=== PATIENT | female | born 1950 | race Caucasian/White ===

== ENCOUNTER → 2018-05-03 15:18 | Outpatient (CLI) | payer MEDICARE, SELFPAY ==
[2018-05-03 16:48] LABS: Hemoglobin 13.3 g/dl (12.0-15.0); Mean Corp Hgb Conc 32.4 g/gl (32-36); Mean Corpuscular Hgb 30.3 pg (27.0-32.0); Mean Corpuscular Volume 93.4 fL (81-99); Mean Platelet Vol. 10.3 fl (6.2-12.0); Platelet Count 260 K/mm3 (150-450); RBC Distribution Width CV 12.5 % (11.6-14.6); RBC Distribution Width SD 42.1 fl (35.1-43.9); Red Blood Count 4.39 M/mm3 (4.2-5.4); White Blood Count 6.1 K/mm3 (4.4-11.0)
[2018-05-03 17:00] LABS: Scan Indicated on CBC? Y/N NO
[2018-05-03 17:18] LABS: ALB/GLOB Ratio 1.3 RATIO (0.9-2.4); AST(SGOT) 13 U/L (15-37); Alanine Aminotransfer ALT/SGPT 21 U/L (13-56); Albumin, Serum 3.8 g/dL (3.2-5.0); Alkaline Phosphatase 66 U/L (45-117); Anion Gap 9 (5-15); BUN 15 mg/dL (7-18); BUN/Creat Ratio 23.9 RATIO (10-20); Calcium,Total 8.7 mg/dL (8.5-10.1); Chloride 107 mmol/L (98-107); Cholesterol 197 mg/dL (200); Creatinine, Serum 0.63 mg/dL (0.55-1.02); EST Glomerular Filtration Rate 100 mL/min (>60); Est Glom Filt Rate - Afr Amer 121 mL/min (>60); Globulin 2.9 g/dL (2.2-4.2); Glucose 83 mg/dL (74-106); High Density Lipoprotein 93 mg/dL; Potassium 3.8 mmol/L (3.5-5.1); Protein, Total 6.7 g/dL (6.4-8.2); Sodium Level 143 mmol/L (136-145); Triglycerides 47 mg/dL; Very Low Density Lipoprotein 9 mg/dL (5-40)
[2018-05-03 17:26] LABS: Vitamin D,25 Hydroxy 35.7 ng/mL (29.95-100.01)
== END ==
PROVIDERS: Family Provider Family Medicine; PCP Family Medicine; Referring Provider Family Medicine; Visit Provider Family Medicine
DX: Z00.00 Encounter for general adult medical examination without abnormal findings (principal); Z12.11 Encounter for screening for malignant neoplasm of colon; I10 Essential (primary) hypertension; E55.9 Vitamin D deficiency, unspecified; R53.81 Other malaise; R53.83 Other fatigue
CPT/HCPCS: 36415; 80053; 80061; 82306; 85027

== ENCOUNTER → 2018-05-12 13:33 | Outpatient (CLI) | payer MEDICARE, SELFPAY ==
[2014-12-06 11:11] VITALS: BMI 22.4
--- OUTSIDE RECORDS SUMMARY | 2018-08-16 04:00 | XMS RPT_ITS ---
:1950 Author Organization OHIP Care Team Providers Name Role Phone RANI WIGGINS Admitting Unavailable RANI WIGGINS Attending Unavailable RANI WIGGINS Primary Care Unavailable BAIRON PAINTING (BUSINESS OPERATIONS SPECIALIST) Attending Unavailable ELDERBROCK, JAMIE Cristobal Attending Unavailable ELDERBROCK, JAMIE Cristobal Referring Unavailable Elderbrock, Jamie Attending Unavailable Elderbrock, Jamie Referring Unavailable Elderbrock, Jamie Primary Care Unavailable Elderbrock, Jamie Attending Unavailable Elderbrock, Jamie Referring Unavailable Elderbrock, Jamie Primary Care Unavailable PROBLEMS PROBLEMS DATE TYPE CONDITION / CODE ATTENDING STATUS SOURCE 05/12/2018 Unknown R19.7 - Diarrhea, Elder[place]ck, Active [place] unspecified / [facility] R19.7(ICD-10) Hospital Repository 05/03/2018 Unknown Z00.00 - Encounter [place], Active [place] for general adult [facility] examination Repository without abnormal findings / Z00.00(ICD-10) 05/03/2018 Unknown I10 - Essential Elder[place]ck, Active [place] (primary) [facility] hypertension / Hospital I10(ICD-10) Repository 05/03/2018 Unknown Z12.11 - Encounter Elder[place]ck, Active [place] for screening for [facility] malignant neoplasm Hospital of colon / Repository Z12.11(ICD-10) 05/03/2018 Unknown E55.9 - Vitamin D Elderbrock, Active [place] deficiency, [facility] unspecified / Hospital E55.9(ICD-10) Repository 05/03/2018 Unknown R53.81 - Other Elderbrock, Active [place] malaise / [facility] R53.81(ICD-10) Hospital Repository 05/03/2018 Unknown R53.83 - Other Elderbrock, Active [place] fatigue / [facility] R53.83(ICD-10) Hospital Repository PROCEDURES PROCEDURES No Procedure Records FoundRESULTS RESULTS Observed: 05/12/2018 Status: F Source: [place] STOOL OCCULT BLOOD 1:47 PM [facility] IFOB REPOSITORY STOB iFOB Occult Blood Negative Performed By: #### M100.7900 #### [facility] [address] [place], [place], [id number] CBC-COMPLETE BLOOD CNT Collected: 05/03/2018 Status: F Source: [place] NO DIFF 3:46 PM [facility] REPOSITORY TYPE CODE TESTS RESULT OUT OF RANGE REFERENCE UNITS LAB L100.1000 4.4-11.0 K/mm3 Normal WBC 6.1 LAB L100.1200 4.2-5.4 M/mm3 Normal RBC 4.39 LAB L100.1300 12.0-15.0 g/dl Normal HGB 13.3 LAB L100.1400 37-47 % Normal HCT 41.0 LAB L100.1500 81-99 fL Normal MCV 93.4 LAB L100.1600 27.0-32.0 pg Normal MCH 30.3 LAB L100.1700 32-36 g/gl Normal MCHC 32.4 LAB L100.1810 11.6-14.6 % Normal RDW CV 12.5 LAB L100.1820 35.1-43.9 fl Normal RDW SD 42.1 LAB L100.1900 150-450 K/mm3 Normal PLT 260 LAB L100.2000 6.2-12.0 fl Normal MPV 10.3 Performed By: #### L100.0500 #### [facility] [address] [place], [place], [address] COMPREHENSIVE METABOLIC Collected: 05/03/2018 Status: F Source: [place] PROFIL 3:46 PM [facility] REPOSITORY TYPE CODE TESTS RESULT OUT OF RANGE REFERENCE UNITS LAB L501.0100 74-106 mg/dL Normal GLU 83 Result Comment: Please note revised GLUCOSE reference range effective 2017. LAB L501.1000 7-18 mg/dL Normal BUN 15 LAB L501.1100 0.55-1.02 mg/dL Normal CREAT,SERUM 0.63 Result Comment: The validity of the calculated GFR AND GFRAA in patients over 70 years has not been determined. Clinical correlation is essential. LAB L501.1110 >60 mL/min Normal EST GFR 100 Result Comment: Non- GFR Calc LAB L501.1115 >60 mL/min Normal EST GFR - AA 121 Result Comment: GFR Calc LAB L501.1300 10-20 RATIO High BUN/CRE 23.9 LAB L501.1500 6.4-8.2 g/dL T Normal PROT 6.7 LAB L501.1800 3.2-5.0 g/dL Normal ALB 3.8 LAB L501.1950 2.2-4.2 g/dL Normal GLOB 2.9 LAB L501.2000 0.9-2.4 RATIO Normal A/G 1.3 LAB L501.2200 8.5-10.1 mg/dL CA Normal 8.7 LAB L501.4100 15-37 U/L Low AST 13 LAB L501.4305 45-117 U/L Normal ALK P 66 LAB L501.4405 13-56 U/L Normal ALT 21 LAB L501.4600 0.20-1.00 mg/dL T Normal BILI 0.50 LAB L501.5300 136-145 mmol/L NA Normal 143 LAB L501.5600 3.5-5.1 mmol/L K Normal 3.8 LAB L501.5900 98-107 mmol/L CL Normal 107 LAB L501.6100 21.0-32.0 mmol/L Normal CO2 27.0 LAB L501.6200 5-15 Normal GAP 9 Performed By: #### L500.4050, L500.4100 #### [facility] [address] [place], [address] LIPID PROFILE Collected: 05/03/2018 Status: F Source: [place] 3:46 PM [facility] REPOSITORY TYPE CODE TESTS RESULT OUT OF RANGE REFERENCE UNITS LAB L501.4900 200 mg/dL Normal CHOL 197 Result Comment: <200 mg/dL Desirable 200-240 mg/dL Borderline >240 mg/dL High Risk LAB L501.5000 mg/dL Normal TRIG 47 Result Comment: The drugs N-Acetylcysteine and Metamizole may falsely depress this assay. Serum Triglycerides Reference Interval Normal <150 mg/dL Borderline high 150 - 199 mg/dL High 200 - 499 mg/dL Very High > or = 500 mg/dL LAB L501.6400 mg/dL Normal HDL 93 Result Comment: The drugs N-Acetylcysteine and Metamizole may falsely depress this assay. Reference Range HDL <40 mg/dL Low HDL Cholesterol HDL >or= 60 mg/dL High HDL Cholesterol LAB L501.6500 0-130 mg/dL Normal LDL 95 LAB L501.6600 5-40 mg/dL Normal VLDL 9 Performed By: #### L500.4050, L500.4100 #### [facility] [address] [place], [address] VITAMIN D,25 HYDROXY Collected: 05/03/2018 Status: F Source: [place] 3:46 PM [facility] REPOSITORY TYPE CODE TESTS RESULT OUT OF RANGE REFERENCE UNITS LAB L506.1000 29.95-100.01 ng/mL Normal Vitamin D 35.7 25-OH Result Comment: Vitamin D 25(OH) Status Range Deficiency <20 ng/mL (50nmol/L) Insuffciency 20 - 30 ng/mL (50 - 75 nmol/L) Sufficiency 30 - 100 ng/mL (75 - 250 nmol/L) Toxicity >100 ng/mL (>250 nmol/L) Performed By: #### L506.1000 #### [facility] [address] [place], [address] PROGRESS Observed: 05/03/2018 Status: COMPLETED Source: [place] 1:22 PM [facility] [place] REPOSITORY O ID: [id number] Author: Jamie Yeboah Service: (none) Author Type: Physician Type: Progress Notes Filed: 05/04/2018 9:15 AM Note Text: Chief Complaint Patient presents with: Physical HPI Mattie Stack is a 68 year old female who presents here today for physical. No bowel, Gi, or urinary concerns. Tries to watch diet, does not eat meat, eats plant based diet. Stays active with walking. No longer taking Zoloft, stated that the medication made her feel worse. HTN: does check BP at home, readings WNL. Denies any chest pains, dizziness, or SOB. Is taking Norvasc 10 mg daily. Insomnia and RLS: controlled. Denies having much issue with the RLS, uses a cream on the legs at night. Is sleeping well, does have occ nights when she wakes up and has difficulty falling back to sleep. Takes the trazodone 50 mg daily at bedtime. Past medical history, appointments, medications, allergies reviewed. Previous Medical History PAST MEDICAL HISTORY Diagnosis Date - HYPERTENSION NOS 07/18/2006 - OSTEOPENIA 08/15/2006 Previous Surgical History PAST SURGICAL HISTORY Procedure Laterality Date - NONE Family History FAMILY HISTORY Problem Relation Age of Onset - Hypertension Father - Hypertension Brother - Stroke Mother Patient Allergies ALLERGIES No Known Allergies Current Medications Current Outpatient Prescriptions on File Prior to Visit: amLODIPine (NORVASC) 10 mg tablet TAKE 1 TABLET DAILY traZODone (DESYREL) 50 mg tablet TAKE 1 TABLET DAILY AT BEDTIME ASCORBIC ACID (VITAMIN C ORAL) Take by mouth. Cholecalciferol, Vitamin D3, 5,000 unit cap Take 1 capsule by mouth once daily. sertraline (ZOLOFT) 50 mg tablet Take 1 tablet by mouth once daily. No current facility-administered medications on file prior to visit. Social History Social History Marital status: Single Spouse name: Years of education: Number of children: Social History Main Topics Smoking status: Never Smoker Smokeless tobacco: Never Used Alcohol use: No Drug use: No Social History Narrative Retired, rides horse EXAM: BP 120/80 Pulse 66 Resp 16 Ht 160 cm (5' 3) Wt 56.7 kg (125 lb) BMI 22.14 kg/m? General Appearance: Well appearing, alert, in no acute distress, well-hydrated, well nourished.. Neck: Supple, no adenopathy; thyroid symmetric, normal size. Lungs: lungs clear to auscultation. No wheezing, rhonchi, rales. Heart: RRR without murmur, gallop, or rubs. No ectopy. Health Maintenance List PAP EVERY 3 YEARS (65-80 YEARS OLD) due on 02/01/2013-declined DTAP,TDAP,TD(1 - Tdap) due on 12/07/2014-declined FECAL OCCULT BLOOD due on 02/08/2017-ordered LIPID SCREEN due on 07/25/2017-ordered MAMMOGRAM due on 08/05/2018 ANNUAL PCP TEAM CHRONIC DISEASE VISIT due on 08/05/2018 BP CONTROLLED (<130/80) due on 08/05/2018 DIABETES SCREEN due on 07/25/2020 BONE DENSITY Completed ADULT PREVNAR-13 Completed INFLUENZA Completed HEPATITIS C SCREENING Completed PNEUMOVAX AGE 65 AND OVER WITH 5YR LOOKBACK Completed Data reviewed None ASSESSMENT/PLAN: 1. Wellness examination - ICD9: V70.0, ICD10: Z00.00 (primary diagnosis) - Encouraged monthly Breast Self Exam - Colon cancer screening reviewed and colonoscopy recommended. FOBT - Recommended regular aerobic exercise. - Follow up for annual exam in one year. 2. Essential hypertension - ICD9: 401.9, ICD10: I10 - good control - Continue current medication(s) - Recommended regular aerobic exercise. - Recommend home blood pressure monitoring, to bring results in on next visit - Goal of BP <140/90 3. Screening for colon cancer - ICD9: V76.51, ICD10: Z12.11 Order printed - FECAL OCCULT BLOOD TEST 4. Primary insomnia - ICD9: 307.42, ICD10: F51.01 Controlled Continue current medications. 5. RLS (restless legs syndrome) - ICD9: 333.94, ICD10: G25.81 Stable Continue current medications. Follow up in 6 months. I agree with the Chief Complaint, ROS, and Past Histories independently gathered by the clinical child support officer and the remaining scribed note accurately describes my personal service to the patient. Jamie Yeboah MD The documentation for this note was completed by Sary Howard Ma acting as scribe for Jamie Yeboah MD. May 03, 2018 1:22 PM. CNOV Observed: 05/03/2018 Status: COMPLETED Source: [place] 1:20 PM [facility] REPOSITORY Office Visit (FAMPWS) MATTIE STACK ([id number]) 1950 F Date Time Provider Department 05/03/18 1:20 PM JAMIE YEBOAH During your visit today, we recorded the following information about you: Pulse Respiration Blood pressure Weight 66/minute 16/minute 120/80 56.7 kg Height 1.6 m Jamie Yeboah MD 05/04/2018 9:15 AM Signed Chief Complaint Patient presents with: Physical HPI Mattie Maggie Stack is a 68 year old female who presents here today for physical. No bowel, Gi, or urinary concerns. Tries to watch diet, does not eat meat, eats plant based diet. Stays active with walking. No longer taking Zoloft, stated that the medication made her feel worse. HTN: does check BP at home, readings WNL. Denies any chest pains, dizziness, or SOB. Is taking Norvasc 10 mg daily. Insomnia and RLS: controlled. Denies having much issue with the RLS, uses a cream on the legs at night. Is sleeping well, does have occ nights when she wakes up and has difficulty falling back to sleep. Takes the trazodone 50 mg daily at bedtime. Past medical history, appointments, medications, allergies reviewed. Previous Medical History PAST MEDICAL HISTORY Diagnosis Date - HYPERTENSION NOS 07/18/2006 - OSTEOPENIA 08/15/2006 Previous Surgical History PAST SURGICAL HISTORY Procedure Laterality Date - NONE Family History FAMILY HISTORY Problem Relation Age of Onset - Hypertension Father - Hypertension Brother - Stroke Mother Patient Allergies ALLERGIES No Known Allergies Current Medications Current Outpatient Prescriptions on File Prior to Visit: amLODIPine (NORVASC) 10 mg tablet TAKE 1 TABLET DAILY traZODone (DESYREL) 50 mg tablet TAKE 1 TABLET DAILY AT BEDTIME ASCORBIC ACID (VITAMIN C ORAL) Take by mouth. Cholecalciferol, Vitamin D3, 5,000 unit cap Take 1 capsule by mouth once daily. sertraline (ZOLOFT) 50 mg tablet Take 1 tablet by mouth once daily. No current facility-administered medications on file prior to visit. Social History Social History Marital status: Single Spouse name: Years of education: Number of children: Social History Main Topics Smoking status: Never Smoker Smokeless tobacco: Never Used Alcohol use: No Drug use: No Social History Narrative Retired, rides horse EXAM: BP 120/80 Pulse 66 Resp 16 Ht 160 cm (5' 3) Wt 56.7 kg (125 lb) BMI 22.14 kg/m? General Appearance: Well appearing, alert, in no acute distress, well-hydrated, well nourished.. Neck: Supple, no adenopathy; thyroid symmetric, normal size. Lungs: lungs clear to auscultation. No wheezing, rhonchi, rales. Heart: RRR without murmur, gallop, or rubs. No ectopy. Health Maintenance List PAP EVERY 3 YEARS (65-80 YEARS OLD) due on 02/01/2013-declined DTAP,TDAP,TD(1 - Tdap) due on 12/07/2014-declined FECAL OCCULT BLOOD due on 02/08/2017-ordered LIPID SCREEN due on 07/25/2017-ordered MAMMOGRAM due on 08/05/2018 ANNUAL PCP TEAM CHRONIC DISEASE VISIT due on 08/05/2018 BP CONTROLLED (<130/80) due on 08/05/2018 DIABETES SCREEN due on 07/25/2020 BONE DENSITY Completed ADULT PREVNAR-13 Completed INFLUENZA Completed HEPATITIS C SCREENING Completed PNEUMOVAX AGE 65 AND OVER WITH 5YR LOOKBACK Completed Data reviewed None ASSESSMENT/PLAN: 1. Wellness examination - ICD9: V70.0, ICD10: Z00.00 (primary diagnosis) - Encouraged monthly Breast Self Exam - Colon cancer screening reviewed and colonoscopy recommended. FOBT - Recommended regular aerobic exercise. - Follow up for annual exam in one year. 2. Essential hypertension - ICD9: 401.9, ICD10: I10 - good control - Continue current medication(s) - Recommended regular aerobic exercise. - Recommend home blood pressure monitoring, to bring results in on next visit - Goal of BP <140/90 3. Screening for colon cancer - ICD9: V76.51, ICD10: Z12.11 Order printed - FECAL OCCULT BLOOD TEST 4. Primary insomnia - ICD9: 307.42, ICD10: F51.01 Controlled Continue current medications. 5. RLS (restless legs syndrome) - ICD9: 333.94, ICD10: G25.81 Stable Continue current medications. Follow up in 6 months. I agree with the Chief Complaint, ROS, and Past Histories independently gathered by the clinical child support officer and the remaining scribed note accurately describes my personal service to the patient. Jamie Yeboah MD The documentation for this note was completed by Sary Howard Ma acting as scribe for Jamie Yeboah MD. May 03, 2018 1:22 PM. Referring Provider: JAMIE YEBOAH [[id number]] Allergies As of Date: 05/03/2018 (No Known Allergies) Date Reviewed: 05/03/2018 Reviewed by: Sary Howard Ma - Fully Assessed Reason for Visit: Physical [83] Primary Visit Diagnosis:Wellness examination [Z00.00] Other Visit Diagnoses:Essential hypertension [I10] Screening for colon cancer [Z12.11] Primary insomnia [F51.01] RLS (restless legs syndrome) [G25.81] Malaise and fatigue [R53.81, R53.83] Vitamin D deficiency [E55.9] Order(s):FECAL OCCULT BLOOD TEST [SQIFOBT] Order #: [id number] FUTURE LIPID PANEL, NONFASTING [SQLIPNF] Order #: [id number] FUTURE COMP METABOLIC PANEL [SQCMP] Order #: [id number] FUTURE CBC [SQCBC] Order #: [id number] FUTURE VITAMIN D 25 HYDROXY [SQVITD] Order #: [id number] FUTURE Prescriptions as of 05/03/2018 Sig: AMLODIPINE 10 MG TABLET TAKE 1 TABLET DAILY TRAZODONE 50 MG TABLET TAKE 1 TABLET DAILY AT BEDTIME VITAMIN C ORAL Take by mouth. CHOLECALCIFEROL (VITAMIN D3) * Take 1 capsule by mouth once * SERTRALINE 50 MG TABLET Take 1 tablet by mouth once d* Problem List As Of Date 05/03/2018 Noted Resolved Essential hypertension [I10] INVALID FOR* Osteopenia, senile [M85.80] INVALID FOR* PURE HYPERGLYCERIDEMIA [E78.1] INVALID FOR* Primary insomnia [F51.01] INVALID FOR* RLS (restless legs syndrome) [G25.81] INVALID FOR* Malaise and fatigue [R53.81, R53.83] INVALID FOR* Disposition: Return in about 6 months (around 11/01/2018). Follow-up and Disposition History Recorded Encounter Status:Closed by JAMIE YEBOAH MD on 05/04/18 CNOV Observed: 08/05/2017 Status: COMPLETED Source: [place] 8:20 AM [facility] REPOSITORY Office Visit (FAMPWS) MATTIE STACK ([id number]) 1950 F Date Time Provider Department 08/05/17 8:20 AM BAIRON PAINTING (BRUCE) SHANNON During your visit today, we recorded the following information about you: Temperature Pulse Respiration Blood pressure 98.2 degrees 80/minute 20/minute 118/70 Weight 56.7 kg Bairon Painting CNP, BRUCE 08/05/2017 8:53 AM Signed Mattie Stack is a 67 year old female who presents in follow up of HTN and was last seen 8 months ago. Doing well overall. Had external labs drawn at [facility], which were unremarkable. Does state that she has had a long history of anxiety. Does states that it effects her sleep. Does feel overwhelmed at times. She does have symptoms of anhedonia, lack of energy for greater then 2 weeks at a time. No SI/HI. Has been on Zoloft in the past when doing through menopause, states that she would like to go back on it. Does have a history of osteopenia, BMD 2012. Is prescribed vitamin D 5,000 units daily. Admits to skipping doses of this supplement. Was previously on Fosamax. Does not smoke, does not drink alcohol. Does get exercise in the form of taking care of her horse. PHQ-2 Score: 4 PHQ-9 Score: 9 HTN: Ms. Stack indicates that she is feeling well and denies any symptoms referable to elevated blood pressure. Specifically denies headache, chest pain, palpitations, dyspnea and peripheral edema. Patient denies any side effects of her medication(s) and is compliant with their regimen. She does check BP's away from this office with average BP's in the 117-120 systolic range. Mattie gets sporadic irregular exercise. She watches her diet for sodium, low fat and low cholesterol most of the time. Last 3 Encounter BP Readings: Date: BP: 08/05/2017 118/70 02/04/2016 118/70 10/28/2015 120/80 Past Medical, Surgical, Family and Social Histories reviewed and updated today in the History tab of [facility]. Current Medications and allergies reviewed. PAST MEDICAL HISTORY Diagnosis Date - HYPERTENSION NOS 07/18/2006 - OSTEOPENIA 08/15/2006 PAST SURGICAL HISTORY Procedure Laterality Date - NONE ACTIVE PROBLEM LIST Essential Hypertension OSTEOPENIA Pure Hyperglyceridemia Primary Insomnia Rls (Restless Legs Syndrome) Malaise and Fatigue ALLERGIES: Review of patient's allergies indicates no known allergies. Current Outpatient Prescriptions: amLODIPine (NORVASC) 10 mg tablet Take 1 tablet by mouth once daily. traZODone (DESYREL) 50 mg tablet Take 1 tablet by mouth daily at bedtime. ASCORBIC ACID (VITAMIN C ORAL) Take by mouth. Cholecalciferol, Vitamin D3, 5,000 unit cap Take 1 capsule by mouth once daily. No current facility-administered medications for this visit. FAMILY HISTORY Problem Relation Age of Onset - Hypertension Father - Hypertension Brother - Stroke Mother Social History Marital status: Single Spouse name: Years of education: Number of children: Social History Main Topics Smoking status: Never Smoker Smokeless status: Never Used Alcohol use: No Drug use: No Social History Narrative Retired, rides horse PHYSICAL EXAM: BP 118/70 Pulse 80 Temp 36.8 ?C (98.2 ?F) (Tympanic) Resp 20 Wt 56.7 kg (125 lb) BMI 21.97 kg/m2 General appearance: healthy, Alert, cooperative, pleasant, in no acute distress Head: Normocephalic, atraumatic Eyes: normal, conjunctiva/corneas normal, PERRL Oropharynx: moist without lesions, teeth in good repair Neck: normal, supple, no adenopathy, thyroid normal size, non-tender, without nodularity and no bruits Heart: normal, regular rate and rhythm, without murmur Lungs: clear to auscultation, without rales or wheeze, good air exchange Abdomen:soft, nondistended, nontender, no hepatosplenomegaly or masses Ext: no edema in LE bilaterally, good distal pulses ASSESSMENT/PLAN: 1. Primary insomnia - ICD9: 307.42, ICD10: F51.01 (primary diagnosis) - Stable, patient would like to continue current dose. Possible that it is related to underlying anxiety. - TRAZODONE 50 MG TABLET 2. Essential hypertension - ICD9: 401.9, ICD10: I10 - good control - Continue current medication(s) - Encouraged dietary sodium restriction/DASH diet - Recommended regular aerobic exercise. - Recommend home blood pressure monitoring, to bring results in on next visit - Goal of BP ANDlt;130/80 - AMLODIPINE 10 MG TABLET - BASIC METABOLIC PNL 3. Osteopenia, senile - ICD9: 733.90, ICD10: M85.80 - Reviewed the need for Calcium and Vitamin D supplements and weight bearing exercise as tolerated - DXA-AXIAL SKELETON 4. Vitamin D deficiency - ICD9: 268.9, ICD10: E55.9 - Continue with vitamin D supplementation. - VITAMIN D 25 HYDROXY 5. Anxiety and depression - ICD9: 300.00, 311, ICD10: F41.8 - Will restart on Zoloft, as it has been well tolerated in the past. - SERTRALINE 50 MG TABLET 6. Screening for lipid disorders - ICD9: V77.91, ICD10: Z13.220 - Advised to continue with healthy, balance diet, continue with increasing activity. - LIPID PANEL BASIC Get BMD. Will notify of results. Get labs in 6 months, follow up at that time. Lab orders faxed to [facility]. BRUCE Harmon CNP, CNP 08/05/2017 8:41 AM Signed Please take Zoloft 50 mg, 1/2 tablet daily for 7 days, then increase to 1 whole tablet daily Bairon Painting CNP Referring Provider: SELF [[id number]] Allergies As of Date: 08/05/2017 (No Known Allergies) Date Reviewed: 08/05/2017 Reviewed by: Bairon Scruggs) BRUCE Painting - Fully Assessed Reason for Visit: Medication Follow-up [270] Primary Visit Diagnosis:Primary insomnia [F51.01] Other Visit Diagnoses:Essential hypertension [I10] Osteopenia, senile [M85.80] Vitamin D deficiency [E55.9] Anxiety and depression [F41.8] Screening for lipid disorders [Z13.220] Order(s):amLODIPine (NORVASC) 10 mg tabletTake 1 tablet by mouth once daily.Disp: 90 tabletRfl: 1 traZODone (DESYREL) 50 mg tabletTake 1 tablet by mouth daily at bedtime.Disp: 90 tabletRfl: 1 VITAMIN D 25 HYDROXY [SQVITD] Order #: [id number] FUTURE sertraline (ZOLOFT) 50 mg tabletTake 1 tablet by mouth once daily.Disp: 90 tabletRfl: 1 BASIC METABOLIC PNL [SQBMP] Order #: [id number] FUTURE LIPID PANEL BASIC [SQLIPB] Order #: [id number] FUTURE DXA-AXIAL SKELETON [0692390] Order #: [id number] FUTURE Prescriptions as of 08/05/2017 Sig: VITAMIN C ORAL Take by mouth. CHOLECALCIFEROL (VITAMIN D3) * Take 1 capsule by mouth once * AMLODIPINE 10 MG TABLET Take 1 tablet by mouth once d* TRAZODONE 50 MG TABLET Take 1 tablet by mouth daily * SERTRALINE 50 MG TABLET Take 1 tablet by mouth once d* Problem List As Of Date 08/05/2017 Noted Resolved Essential hypertension [I10] INVALID FOR* Osteopenia, senile [M85.80] INVALID FOR* PURE HYPERGLYCERIDEMIA [E78.1] INVALID FOR* Primary insomnia [F51.01] INVALID FOR* RLS (restless legs syndrome) [G25.81] INVALID FOR* Malaise and fatigue [R53.81, R53.83] INVALID FOR* Other instructions from your clinician: Please take Zoloft 50 mg, 1/2 tablet daily for 7 days, then increase to 1 whole tablet daily Bairon Painting CNP Prescriptions ordered this encounter Disp Refills Start End AMLODIPINE 10 MG TABLET 90 t* 1 08/05/2017 02/01/2018 Class: [facility] Route: ORAL Sig: Take 1 tablet by mouth once daily. TRAZODONE 50 MG TABLET 90 t* 1 08/05/2017 02/01/2018 Class: [facility] Route: ORAL Sig: Take 1 tablet by mouth daily at bedtime. SERTRALINE 50 MG TABLET 90 t* 1 08/05/2017 Route: ORAL Sig: Take 1 tablet by mouth once daily. Medications Discontinued During This Encounter amLODIPine (NORVASC) 10 mg tablet 30 t* 0 07/04/2017 08/05/2017 Route: ORAL Sig: Take 1 tablet by mouth once daily. Disc: Reason for discontinue is not on file. traZODone (DESYREL) 50 mg tablet 30 t* 0 07/04/2017 08/05/2017 Route: ORAL Sig: Take 1 tablet by mouth daily at bedtime. Disc: Reason for discontinue is not on file. Disposition: Return in about 6 months (around 02/05/2018) for HTN, Lipid, Anxiety follow up . Follow-up and Disposition History Recorded Encounter Status:Closed by BAIRON PAINTING CNP on 08/05/17 PROGRESS Observed: 08/05/2017 Status: COMPLETED Source: [place] 8:19 AM [facility] [place] REPOSITORY HNO ID: [id number] Author: Bairon ThompsonBruce) BRUCE Painting Service: (none) Author Type: Nurse Practitioner Type: Progress Notes Filed: 08/05/2017 8:53 AM Note Text: Mattie Stack is a 67 year old female who presents in follow up of HTN and was last seen 8 months ago. Doing well overall. Had external labs drawn at [facility], which were unremarkable. Does state that she has had a long history of anxiety. Does states that it effects her sleep. Does feel overwhelmed at times. She does have symptoms of anhedonia, lack of energy for greater then 2 weeks at a time. No SI/HI. Has been on Zoloft in the past when doing through menopause, states that she would like to go back on it. Does have a history of osteopenia, BMD 2012. Is prescribed vitamin D 5,000 units daily. Admits to skipping doses of this supplement. Was previously on Fosamax. Does not smoke, does not drink alcohol. Does get exercise in the form of taking care of her horse. PHQ-2 Score: 4 PHQ-9 Score: 9 HTN: Ms. Stack indicates that she is feeling well and denies any symptoms referable to elevated blood pressure. Specifically denies headache, chest pain, palpitations, dyspnea and peripheral edema. Patient denies any side effects of her medication(s) and is compliant with their regimen. She does check BP's away from this office with average BP's in the 117-120 systolic range. Mattie gets sporadic irregular exercise. She watches her diet for sodium, low fat and low cholesterol most of the time. Last 3 Encounter BP Readings: Date: BP: 08/05/2017 118/70 02/04/2016 118/70 10/28/2015 120/80 Past Medical, Surgical, Family and Social Histories reviewed and updated today in the History tab of [facility]. Current Medications and allergies reviewed. PAST MEDICAL HISTORY Diagnosis Date - HYPERTENSION NOS 07/18/2006 - OSTEOPENIA 08/15/2006 PAST SURGICAL HISTORY Procedure Laterality Date - NONE ACTIVE PROBLEM LIST Essential Hypertension OSTEOPENIA Pure Hyperglyceridemia Primary Insomnia Rls (Restless Legs Syndrome) Malaise and Fatigue ALLERGIES: Review of patient's allergies indicates no known allergies. Current Outpatient Prescriptions: amLODIPine (NORVASC) 10 mg tablet Take 1 tablet by mouth once daily. traZODone (DESYREL) 50 mg tablet Take 1 tablet by mouth daily at bedtime. ASCORBIC ACID (VITAMIN C ORAL) Take by mouth. Cholecalciferol, Vitamin D3, 5,000 unit cap Take 1 capsule by mouth once daily. No current facility-administered medications for this visit. FAMILY HISTORY Problem Relation Age of Onset - Hypertension Father - Hypertension Brother - Stroke Mother Social History Marital status: Single Spouse name: Years of education: Number of children: Social History Main Topics Smoking status: Never Smoker Smokeless status: Never Used Alcohol use: No Drug use: No Social History Narrative Retired, rides horse PHYSICAL EXAM: BP 118/70 Pulse 80 Temp 36.8 ?C (98.2 ?F) (Tympanic) Resp 20 Wt 56.7 kg (125 lb) BMI 21.97 kg/m2 General appearance: healthy, Alert, cooperative, pleasant, in no acute distress Head: Normocephalic, atraumatic Eyes: normal, conjunctiva/corneas normal, PERRL Oropharynx: moist without lesions, teeth in good repair Neck: normal, supple, no adenopathy, thyroid normal size, non-tender, without nodularity and no bruits Heart: normal, regular rate and rhythm, without murmur Lungs: clear to auscultation, without rales or wheeze, good air exchange Abdomen:soft, nondistended, nontender, no hepatosplenomegaly or masses Ext: no edema in LE bilaterally, good distal pulses ASSESSMENT/PLAN: 1. Primary insomnia - ICD9: 307.42, ICD10: F51.01 (primary diagnosis) - Stable, patient would like to continue current dose. Possible that it is related to underlying anxiety. - TRAZODONE 50 MG TABLET 2. Essential hypertension - ICD9: 401.9, ICD10: I10 - good control - Continue current medication(s) - Encouraged dietary sodium restriction/DASH diet - Recommended regular aerobic exercise. - Recommend home blood pressure monitoring, to bring results in on next visit - Goal of BP <130/80 - AMLODIPINE 10 MG TABLET - BASIC METABOLIC PNL 3. Osteopenia, senile - ICD9: 733.90, ICD10: M85.80 - Reviewed the need for Calcium and Vitamin D supplements and weight bearing exercise as tolerated - DXA-AXIAL SKELETON 4. Vitamin D deficiency - ICD9: 268.9, ICD10: E55.9 - Continue with vitamin D supplementation. - VITAMIN D 25 HYDROXY 5. Anxiety and depression - ICD9: 300.00, 311, ICD10: F41.8 - Will restart on Zoloft, as it has been well tolerated in the past. - SERTRALINE 50 MG TABLET 6. Screening for lipid disorders - ICD9: V77.91, ICD10: Z13.220 - Advised to continue with healthy, balance diet, continue with increasing activity. - LIPID PANEL BASIC Get BMD. Will notify of results. Get labs in 6 months, follow up at that time. Lab orders faxed to [facility]. Bairon Paintign CNP CMP WITH EGFR Collected: 07/25/2017 Status: F Source: [facility] 7:30 AM [facility] REPOSITORY TYPE CODE TESTS RESULT OUT OF RANGE REFERENCE UNITS LAB CMP with eGFR(LOINC) CMP with eGFR Result Comment: COMPREHENSIVE METABOLIC PANEL LAB SODIUM(LOINC) 136 - 145 mmol/l SODIUM 141 LAB POTASSIUM(LOINC) 3.5 - 5.1 mmol/L POTASSIUM 3.7 LAB CHLORIDE(LOINC) 98 - 107 mmol/L CHLORIDE 107 LAB CO2(LOINC) 21.0 - mmol/L 31.0 CO2 28.7 LAB GLUCOSE(LOINC) 74 - 106 mg/dl GLUCOSE 99 LAB BUN(LOINC) 6 - 20 mg/dl BUN 13 LAB CREATININE(LOINC) 0.6 - 1.2 mg/dl CREATININE 0.7 LAB AST/SGOT(LOINC) 13 - 39 U/L AST/SGOT Low 12 LAB ALK PHOS(LOINC) 38 - 126 U/L ALK PHOS 51 LAB CALCIUM(LOINC) 8.6 - mg/dl 10.2 CALCIUM 9.1 LAB TOTAL 6.4 - 8.3 g/dl PROTEIN(LOINC) TOTAL Low PROTEIN 6.2 LAB ALBUMIN(LOINC) 3.4 - 4.8 g/dL ALBUMIN 4.2 LAB GLOBULIN(LOINC) 1.5 - 3.8 G/DL GLOBULIN 2.0 LAB A/G RATIO(LOINC) 0.9 - 1.6 A/G High RATIO 2.1 LAB TOTAL BILI(LOINC) 0.0 - 1.5 mg/dl TOTAL BILI 0.7 LAB B/C RATIO(LOINC) 0 - 30 ratio B/C RATIO 19 LAB ALT/SGPT(LOINC) 8 - 35 U/L ALT/SGPT 12 LAB ANION GAP(LOINC) 10 - 20 mmol/L ANION Low GAP 9 LAB AGE(LOINC) years AGE 67 LAB eGFR(LOINC) 60 - 999 ML/MINUTE eGFR >60 LAB eGFR(AA)(LOINC) 60 - 999 ML/MINUTE eGFR(AA) >60 Result Comment: ACCORDING TO THE NATIONAL KIDNEY DISEASE EDUCATION PROGRAM(NKDE), A NORMAL eGFR IS A VALUE GREATER THAN OR EQUAL TO 60 ML/MIN/1.73 SQ METERS. CHRONIC KIDNEY DISEASE: <60mL/MIN/1.73 SQ METERS KIDNEY FAILURE: <15mL/MIN/1.73 SQ METERS THIS TEST SHOULD ONLY BE USED FOR PATIENTS 18 YEARS OF AGE AND OLDER. Performed By: #### [id number] #### [facility],[address] [place] [address] CBC Collected: 07/25/2017 Status: F Source: [facility] 7:30 AM [facility] REPOSITORY TYPE CODE TESTS RESULT OUT OF RANGE REFERENCE UNITS LAB CBC(LOINC) CBC Result Comment: CBC-COMPLETE BLOOD COUNT LAB WBC(LOINC) 4.5 - 10.8 x 10EE3/UL WBC 5.3 LAB RBC(LOINC) 4.10 - x 10EE6/UL 5.30 RBC 4.45 LAB HEMOGLOBIN(LOINC) 12.0 - g/dl 16.0 HEMOGLOBIN 13.9 LAB HEMATOCRIT(LOINC) 34.0 - % 46.0 HEMATOCRIT 41.0 LAB MCV(LOINC) 80 - 99 fl MCV 92 LAB MCH(LOINC) 27 - 33 pg MCH 31 LAB MCHC(LOINC) 32 - 36 X10 3 MCHC 34 LAB RDW/CV(LOINC) 12.0 - % 15.6 RDW/CV 13.0 LAB PLATELET(LOINC) 150 - 450 x10EE3/UL PLATELET 260 LAB MPV(LOINC) 6.6 - 10.5 fl MPV 9.2 Result Comment: AUTOMATED DIFFERENTIAL LAB NEUT %(LOINC) 46.0 - 76.0 % NEUT % 56.8 LAB LYMPH %(LOINC) 20.0 - 45.0 % LYMPH % 32.8 LAB MONOS %(LOINC) 0.0 - 10.0 % MONOS % 7.1 LAB EO %(LOINC) 0.0 - 7.0 % EO % 2.6 LAB BASO %(LOINC) 0.0 - 2.0 % BASO % 0.7 LAB Lymph #(LOINC) 0.80 - 2.80 x10EE3/U L Lymph # 1.70 LAB Neut #(LOINC) 1.50 - 7.10 x10EE3/U L Neut # 3.00 LAB [place] #(LOINC) 0.20 - 1.00 x10EE3/U L [place] # 0.40 LAB EO #(LOINC) 0.00 - 0.50 x10EE3/U L EO # 0.10 LAB Baso #(LOINC) 0.00 - 0.10 x10EE3/U L Baso # 0.00 LAB MANUAL DIFF(LOINC) MANUAL DIFF N/A LAB MORPHOLOGY(LOINC ) MORPHOLOGY N/A Result Comment: {CD] Performed By: #### [id number] #### [facility],[address] [place] [address] ALLERGIES ALLERGIES DATE TYPE / CODE NAME / CODE REACTION SEVERITY SOURCE 12/06/2014 Drug No Known Unknown [place] Allergy/711712242([facility] [address] Rep[facility] Drug NO KNOWN [place] Class/[id number](SNO ALLERGIES [facility] CT) [place] Repository Miscellaneous No Known Drug Moderate [facility] Allergy/266086216(S All[facility]ies [facility] (Qualifier Repository Value) ENCOUNTERS ENCOUNTERS ADMIT/DISCHARGE ACCOUNT ADMITTING ENCOUNTER LOCATION SOURCE NUMBER CLASS 05/12/2018 [id number] [facility] ing:LABSPEC Repository 05/03/2018 [id number] [facility] ing:LAB Repository 05/03/2018/05/04/[id number] Repository 08/05/2017/08/09/[id number] Repository 07/25/2017/07/25/19 [id number] RANI WIGGINS Ambulatory [address] Repository PAYERS PAYERS ENCOUNTER GUARANTOR PAYER SUBSCRIBER SOURCE 05/12/2018 MATTIE Serrano Primary Insurance:MILLA Serrano Sarah [id number] [facility] GABRIELDOB: [facility] Number: [id number], [id number] [place]ository [place] [address]Jro: Date:[id number], [place] () [id number]: 05/12/2018 Secondary NOT GIVENUNK [place] Insurance:SELF PAY [facility] Number: Effective Repository Date:2018-05-12 05/03/2018 MATTIE Serrano Primary Insurance:MILLA MATTIE Serrano Sarah [id number] [facility] GABRIELDOB: [facility] Number: [id number], [id number] Repository [place] [address]Hos: Date:[id number], [place] () [address]LB: 05/03/2018 Secondary NOT GIVENUNK [place] Insurance:SELF PAY [facility] Number: Effective Repository Date:2018-05-03 07/25/2017 MATTIE Serrano Primary MATTIE Falklayne GABRIELDOB: Insurance:PRIMETIME GABRIELDOB: [facility] MEDICARE [id number] [facility], Number: [place], [place] [id number] [place] [id number]: Date:Plan Name: ()
== END ==
PROVIDERS: Family Provider Family Medicine; PCP Family Medicine; Referring Provider Family Medicine; Visit Provider Family Medicine
DX: R19.7 Diarrhea, unspecified (principal)
CPT/HCPCS: 82274